=== PATIENT | male | born 2000 | race Caucasian/White ===

== ENCOUNTER 2024-04-05 08:08 | Emergency (ER) | payer SELFPAY ==
[2024-04-05] MEDS ORDERED: methylPREDNISolone Sod Succ/PF 125 MG/2 ML VIAL ONE ×2 (08:30→10:07)
[2024-04-05] MEDS ORDERED: diphenhydrAMINE 50 MG/ML VIAL ONE (08:57)
== END 2024-04-05 11:47 | disposition home or self-care (01) ==
LOC: NAV ERS 08:08
DX: T63.421A Toxic effect of venom of ants, accidental (unintentional), initial encounter (principal); T78.40XA Allergy, unspecified, initial encounter
CPT/HCPCS: 94760; 96374; 96375; 96376; J1200; J2919